=== PATIENT | male | born 1995 | race Caucasian/White ===

== ENCOUNTER 2017-01-07 03:08 | Emergency (ER) | payer MEDICARE ==
[~2017-01-07] VITALS: Ht 177.8 cm; Wt 95.5 kg
[2017-01-07 03:49] VITALS: BP 121/80
== END 2017-01-07 04:19 | disposition home or self-care (01) ==
LOC: EMS 03:10
DX: F10.129 Alcohol abuse with intoxication, unspecified (principal); Y90.9 Presence of alcohol in blood, level not specified; Z88.8 Allergy status to other drugs, medicaments and biological substances
CPT/HCPCS: 99281